=== PATIENT | male | born 1995 | race Caucasian/White ===

== ENCOUNTER 2024-09-08 14:02 | Emergency (ER) | payer OTHER ==
[~2024-09-08] VITALS: Ht 177.8 cm; Wt 86.6 kg
[2024-09-08 14:05] VITALS: TEMP 98.1
[2024-09-08] MEDS: NS (Normal Saline) 0.9% 1,000 ML IV ONE (14:42)
[2024-09-08 14:54] LABS: BASO # 0.0 10^3/uL (0.0-0.2); BASO % 0.5 % (0.0-1.0); EOS # 0.2 10^3/uL (0.0-0.5); EOS % 2.8 % (0.0-3.0); LYMPH # 1.6 10^3/uL (1.5-5.0); LYMPH % 21.0 % (24.0-44.0); MONO # 0.8 10^3/uL (0.0-0.8); MONO % 10.2 % (2.0-8.0); NEUTROPHILS # 4.8 10^3/uL (1.5-8.5); NEUTROPHILS % 65.0 % (36.0-66.0); PLATELET COUNT, AUTOMATED 177 10^3/uL (150-450)
[2024-09-08 15:20] LABS: CALCIUM LEVEL 9.8 MG/DL (8.5-10.1); CARBON DIOXIDE LEVEL 31 MMOL/L (20-31); CHLORIDE LEVEL 99 MMOL/L (98-107); CK-MB VALUE MASS 5.1 NG/ML (<3.6); CREATININE FOR GFR 1.02 MG/DL (0.70-1.30); GLOMERULAR FILTRATION RATE > 90.0 (>60); POTASSIUM SERUM 4.2 MMOL/L (3.5-5.1); SODIUM LEVEL 140 MMOL/L (136-145)
[2024-09-08 15:28] LABS: BARBITURATES URINE NEGATIVE (NEGATIVE); BENZODIAZEPINES URINE NEGATIVE (NEGATIVE); CANNABINOIDS URINE NEGATIVE (NEGATIVE); COCAINE METABOLITE URINE NEGATIVE (NEGATIVE); METHADONE URINE NEGATIVE (NEGATIVE); OPIATES URINE NEGATIVE (NEGATIVE); PHENCYCLIDINE URINE NEGATIVE (NEGATIVE)
[2024-09-08 15:31] LABS: CPK CREATINE PHOSPHOKINASE 750 U/L (46-171); MB/CK RELATIVE INDEX 0.68 (< OR =4)
[2024-09-08 15:31] LABS: AMPHETAMINES LEVEL URINE POSITIVE (NEGATIVE)
[2024-09-08] MEDS ORDERED: ACET1TAB55 PO (16:03)
[2024-09-08] MEDS ORDERED: VYVA70CA3 PO (16:03)
[2024-09-08] MEDS ORDERED: ZOLO100T PO (16:03)
[2024-09-08] MEDS ORDERED: PREG75CA3 PO (16:03)
[2024-09-08] MEDS ORDERED: TRET0.1C19 TOP (16:03)
[2024-09-08] MEDS ORDERED: NAPR-885 PO (16:03)
[2024-09-08] MEDS ORDERED: DESC1TAB PO (16:03)
[2024-09-08] MEDS ORDERED: DOXY100C3 PO (16:03)
[2024-09-08] MEDS ORDERED: HOME MED LIST COMPLETE! XX SCH (16:05)
[2024-09-08 16:13] LABS: CK-MB VALUE MASS 4.4 NG/ML (<3.6)
[2024-09-08 16:23] LABS: CPK CREATINE PHOSPHOKINASE 642 U/L (46-171); MB/CK RELATIVE INDEX 0.68 (< OR =4)
[2024-09-08 16:30] VITALS: BP 131/64
[2024-09-08 16:32] VITALS: O2SAT 97
== END 2024-09-08 16:52 | disposition home or self-care (01) ==
LOC: M ED 14:02
DX: E86.0 Dehydration (principal); R00.0 Tachycardia, unspecified; F42.9 Obsessive-compulsive disorder, unspecified

== ENCOUNTER 2024-11-05 18:46 | Emergency (ER) | payer OTHER ==
[~2024-11-05] VITALS: Ht 177.8 cm; Wt 90.2 kg
[~2024-11-05 18:46] MED LIST: ACET1TAB55 PO; DESC1TAB PO; DOXY100C3 PO; NAPR-885 PO; PREG75CA3 PO; TRET0.1C19 TOP; VYVA70CA3 PO; ZOLO100T PO
[2024-11-05] MEDS: ACETAMINOPHEN 500 MG TAB PO ONE (21:07)
[2024-11-05 21:20] LABS: BASO # 0.0 10^3/uL (0.0-0.2); BASO % 0.3 % (0.0-1.0); EOS # 0.1 10^3/uL (0.0-0.5); EOS % 0.8 % (0.0-3.0); LYMPH # 1.2 10^3/uL (1.5-5.0); LYMPH % 16.2 % (24.0-44.0); MONO # 1.2 10^3/uL (0.0-0.8); MONO % 16.0 % (2.0-8.0); NEUTROPHILS # 4.8 10^3/uL (1.5-8.5); NEUTROPHILS % 66.1 % (36.0-66.0); PLATELET COUNT, AUTOMATED 135 10^3/uL (150-450)
[2024-11-05 21:38] LABS: ERYTHROCYTE SEDIMENTATION RATE 13 mm/hr (0-15)
[2024-11-05 21:44] LABS: CALCIUM LEVEL 9.5 MG/DL (8.5-10.1); CARBON DIOXIDE LEVEL 29 MMOL/L (20-31); CHLORIDE LEVEL 101 MMOL/L (98-107); CREATININE FOR GFR 1.01 MG/DL (0.70-1.30); GLOMERULAR FILTRATION RATE > 90.0 (>60); POTASSIUM SERUM 4.8 MMOL/L (3.5-5.1); SODIUM LEVEL 139 MMOL/L (136-145)
[2024-11-05 21:53] LABS: C REACTIVE PROTEIN QUANTITATIV 11.15 MG/DL (<1.0)
[2024-11-06] MEDS: IBUPROFEN 800 MG TAB PO ONE (00:16)
[2024-11-06] MEDS ORDERED: ISOVUE-370 76% 100 ML VIAL As Ordered ONE (02:50)
[2024-11-06] MEDS: DOXYCYCLINE HYCLATE 100 MG in DEXTROSE 5% (D5W) MINI-BAG PLU 100 ML IV ONE (03:23)
[2024-11-06 03:25] VITALS: TEMP 98.3
[2024-11-06] MEDS ORDERED: DOXY-441 PO (05:43)
[2024-11-06 06:00] VITALS: BP 112/62; O2SAT 98
== END 2024-11-06 07:01 | disposition home or self-care (01) ==
LOC: M ED 18:46
DX: L03.211 Cellulitis of face (principal); F42.9 Obsessive-compulsive disorder, unspecified; F90.9 Attention-deficit hyperactivity disorder, unspecified type; Z79.899 Other long term (current) drug therapy
CPT/HCPCS: 70491; 80048; 85025; 85652; 86140; 87040; 87486; 87581; 87633; 87798; 87880; 96365; 99284; J1271; Q9967